=== PATIENT | female | born 1935 | race African-American/Black ===

== ENCOUNTER 2017-11-07 16:59 | Inpatient (IN) ==
[2017-11-07] MEDS ORDERED: SODIUM CHLORIDE 0.9% 500 ML IV STA (18:26)
[2017-11-07] MEDS ORDERED: methylPREDNISolone SOD SUC 125 MG/2 ML VIAL IV STA (18:26)
[2017-11-07] MEDS ORDERED: ALBUTEROL/IPRATROPIUM 3 ML NEB RESP TX STA (18:26)
[2017-11-07] MEDS ORDERED: ACETAMINOPHEN 500 MG TABLET PO STA (18:37)
[2017-11-07] MEDS ORDERED: ACETAMINOPHEN 500 MG TABLET ONE (18:40)
[2017-11-07] MEDS ORDERED: methylPREDNISolone SOD SUC 125 MG/2 ML VIAL ONE (18:40)
[2017-11-07 18:42] LABS: Basophils % 0.3 % (0.0-0.8); Hematocrit 41.2 VOL% (35.7-47.0); Hemoglobin 13.2 GM/DL (12.0-16.0); Immature Granulocytes % 0.6 %; Immature Granulocytes Absolute 0.09 #; Lymphocytes # 1.4 10*3/uL (1.4-4.0); Lymphocytes % 9.5 % (21.3-54.2); Mean Corpuscular Hemoglobin 31 PG (27-34); Mean Corpuscular Volume 96.5 FL (87-102); Mean Platelet Volume 9.3 FL (9.6-12.0); Monocytes # 0.9 10*3/uL (0.11-0.8); Monocytes % 6.3 % (1.7-12.7); Neutrophils # 12.2 10*3/uL (1.4-7.4); Neutrophils % 83.3 % (38.7-73.9); Platelet Count 282 T/CUMM (130-400); Red Blood Count 4.27 MC/CUMM (3.8-5.5); Red Cell Distribution Width 12.8 % (9.3-17.3); White Blood Count 14.7 T/CUMM (4-12)
[2017-11-07 19:00] LABS: Albumin 3.9 G/DL (3.4-5.0); Bilirubin,Total 0.5 MG/DL (0.2-1.0); Calcium 9.7 MG/DL (8.5-10.1); Osmolality,Calculated 272.4 MOS/KG (273-304); Potassium 4.3 MMOL/L (3.5-5.1); Total Protein 7.9 G/DL (6.4-8.3)
[2017-11-07 19:25] LABS: Troponin I Only < 0.015 NG/ML (0.00-0.045)
[2017-11-07] MEDS ORDERED: DOXYCYCLINE HYCLATE INJ 100 MG in SODIUM CHLORIDE 0.9% 100 ML IV STA (19:35)
[2017-11-07 19:53] LABS: PT Patient Result 10.5 SECS; Partial Thromboplastin Time 34.2 SECS (0-40)
[2017-11-07] MEDS ORDERED: SODIUM CHLORIDE 0.9% 100 ML IV ONE (19:58)
[2017-11-07] MEDS ORDERED: DOXYCYCLINE HYCLATE 100 MG VIAL ONE (19:58)
[2017-11-07] MEDS ORDERED: ALBUTEROL 1.25 MG/3 ML NEB RESP TX PRN (20:28)
[2017-11-07 20:44] LABS: Apearance,Urine CLEAR (Clear); Bacteria,Urine Occasional /HPF (Few); Bilirubin,Urine Negative (Negative); Blood, Urine Small mg/dL (Negative); Glucose,Urine (UA) Negative (Negative); Ketones,Urine Negative (Negative); Mucus,Urine Occasional /LPF (Occasional); Nitrite,Urine Negative (Negative); Protein,Urine 100 MG/DL; RBC,Urine 1 /HPF (0-4); Squamous Epithelial Cell,Urine Occasional /HPF (0-10); Urine Color Straw (Yellow); Urine Specific Gravity 1.006 (1.001-1.035); Urine Urobilinogen < 2.0 EU/DL (0.2-1.0); WBC,Urine 8 /HPF (0-6)
[2017-11-07] MEDS ORDERED: ONDANSETRON ODT 4 MG TABLET PO PRN (21:40)
[2017-11-07] MEDS ORDERED: LACTOBACILLUS RHAMNOSUS GG CAPSULE PO PRN (21:40)
[2017-11-07] MEDS ORDERED: GLUCAGON 1 MG VIAL IM PRN (21:40)
[2017-11-07] MEDS ORDERED: DEXTROSE 50% 25 GM/50 ML VIAL IV PRN (21:40)
[2017-11-07] MEDS ORDERED: CARBOXYMETHYLCELLULOSE 1% OPH SOLN BOTH EYES PRN (21:40)
[2017-11-07] MEDS ORDERED: ONDANSETRON 4 MG/2 ML VIAL IV PRN (21:40)
[2017-11-07] MEDS ORDERED: guaiFENesin/CODEINE 5 ML LIQUID PO PRN (21:40)
[2017-11-07] MEDS ORDERED: SIMETHICONE CHEW 125 MG TABLET PO PRN (21:40)
[2017-11-07] MEDS ORDERED: POLYETHYLENE GLYCOL POWDER 17 GM PACK PO PRN (21:40)
[2017-11-07] MEDS: MONTELUKAST 10 MG TABLET PO SCH (22:33)
[2017-11-07] MEDS: ENOXAPARIN 40 MG/0.4 ML SYRINGE SUBCUT SCH (22:33)
[2017-11-07] MEDS: MAGNESIUM CHLORIDE 64 MG TABLET PO SCH (22:33)
[2017-11-07] MEDS: MEROPENEM 500 MG in SODIUM CHLORIDE 0.9% 100 ML IV SCH (22:35)
[2017-11-07] MEDS: INSULIN LISPRO 100 UNIT/ML SUBCUT SCH (22:35)
[2017-11-07] MEDS: SODIUM CHLORIDE 0.9% 1,000 ML IV SCH (22:35)
[2017-11-08] MEDS: ALBUTEROL/IPRATROPIUM 3 ML NEB RESP TX SCH ×4 (00:21→15:22)
[2017-11-08] MEDS: Insulin Degludec [Tresiba Flextouch U-200] SUBCUT SCH (00:52)
[2017-11-08] MEDS: LEVOTHYROXINE 100 MCG TABLET PO SCH (05:35)
[2017-11-08 06:05] LABS: Basophils % 0.1 % (0.0-0.8); Hematocrit 37.5 VOL% (35.7-47.0); Hemoglobin 11.9 GM/DL (12.0-16.0); Immature Granulocytes % 0.4 %; Immature Granulocytes Absolute 0.06 #; Lymphocytes # 1.5 10*3/uL (1.4-4.0); Lymphocytes % 9.4 % (21.3-54.2); Mean Corpuscular HGB Conc 31.7 GM/DL (32-36); Mean Corpuscular Hemoglobin 31 PG (27-34); Mean Corpuscular Volume 97.9 FL (87-102); Mean Platelet Volume 9.4 FL (9.6-12.0); Monocytes # 0.3 10*3/uL (0.11-0.8); Monocytes % 1.6 % (1.7-12.7); Neutrophils # 14.5 10*3/uL (1.4-7.4); Neutrophils % 88.5 % (38.7-73.9); Platelet Count 264 T/CUMM (130-400); Red Blood Count 3.83 MC/CUMM (3.8-5.5); Red Cell Distribution Width 12.7 % (9.3-17.3); White Blood Count 16.4 T/CUMM (4-12)
[2017-11-08 06:17] LABS: Band Neutrophils 4 % (0-10); Giant Platelets Few; Hypochromasia 1+; Lymphocytes 7 % (20-55); Ovalocytes Slight; Platelet Estimate Adequate; Segmented Neutrophils 85 % (50-85); Total Cells Counted 100
[2017-11-08 06:40] LABS: Blood Urea Nitrogen 22 MG/DL (7-18); Glucose 357 MG/DL (74-106); Osmolality,Calculated 291.7 MOS/KG (273-304); Potassium 4.1 MMOL/L (3.5-5.1); Risk Ratio 1.37; Sodium 138 MMOL/L (136-145); Troponin I Only < 0.015 NG/ML (0.00-0.045); VLDL CHOLESTEROL 10.4 MG/DL
[2017-11-08 06:50] LABS: Alanine Aminotransferase 14 U/L (13-56); Albumin 3.2 G/DL (3.4-5.0); Alkaline Phosphatase 69 U/L (45-117); Aspartate Amino Transferase 12 U/L (0-37); Blood Urea Nitrogen 21 MG/DL (7-18); Calcium 9.3 MG/DL (8.5-10.1); Glucose 375 MG/DL (74-106); Osmolality,Calculated 290.8 MOS/KG (273-304); Potassium 4.1 MMOL/L (3.5-5.1); Sodium 137 MMOL/L (136-145)
[2017-11-08 06:51] LABS: Lactic Acid 3.5 MMOL/L (0.4-2.0)
[2017-11-08] MEDS: CETIRIZINE 10 MG TABLET PO SCH (08:31)
[2017-11-08] MEDS: PANTOPRAZOLE 40 MG TABLET PO SCH (08:31)
[2017-11-08] MEDS: MEROPENEM 500 MG in SODIUM CHLORIDE 0.9% 100 ML IV SCH ×2 (08:31→20:38)
[2017-11-08] MEDS: ALLOPURINOL 100 MG TABLET PO SCH (08:31)
[2017-11-08] MEDS: MAGNESIUM CHLORIDE 64 MG TABLET PO SCH ×2 (08:31→20:40)
[2017-11-08] MEDS: methylPREDNISolone SOD SUC 40 MG/1 ML VIAL IV SCH ×3 (08:32→21:35)
[2017-11-08] MEDS: INSULIN LISPRO 100 UNIT/ML SUBCUT SCH ×5 (09:06→21:35)
[2017-11-08] MEDS: LETROZOLE 2.5 MG TABLET PO SCH (09:06)
[2017-11-08] MEDS: SODIUM CHLORIDE 0.9% 1,000 ML IV SCH ×3 (11:36→23:35)
[2017-11-08] MEDS: hydrOXYzine HCL 10 MG TABLET PO PRN (13:50)
[2017-11-08] MEDS: ENOXAPARIN 40 MG/0.4 ML SYRINGE SUBCUT SCH ×2 (20:39→21:35)
[2017-11-08] MEDS: MONTELUKAST 10 MG TABLET PO SCH (20:40)
[2017-11-09] MEDS: INSULIN LISPRO 100 UNIT/ML SUBCUT SCH ×5 (01:00→21:13)
[2017-11-09] MEDS: ALBUTEROL/IPRATROPIUM 3 ML NEB RESP TX SCH ×3 (02:40→15:28)
[2017-11-09] MEDS: MORPHINE 4 MG/1 ML VIAL IV PRN ×2 (03:16→22:42)
[2017-11-09] MEDS: LEVOTHYROXINE 100 MCG TABLET PO SCH (06:16)
[2017-11-09] MEDS: methylPREDNISolone SOD SUC 40 MG/1 ML VIAL IV SCH ×2 (09:32→21:15)
[2017-11-09] MEDS: MEROPENEM 500 MG in SODIUM CHLORIDE 0.9% 100 ML IV SCH ×2 (09:34→21:12)
[2017-11-09] MEDS: MAGNESIUM CHLORIDE 64 MG TABLET PO SCH ×2 (09:35→21:15)
[2017-11-09] MEDS: ALLOPURINOL 100 MG TABLET PO SCH (09:35)
[2017-11-09] MEDS: PANTOPRAZOLE 40 MG TABLET PO SCH (09:35)
[2017-11-09] MEDS: CETIRIZINE 10 MG TABLET PO SCH (09:35)
[2017-11-09] MEDS: LETROZOLE 2.5 MG TABLET PO SCH (09:36)
[2017-11-09] MEDS: SODIUM CHLORIDE 0.9% 1,000 ML IV SCH (12:03)
[2017-11-09] MEDS: ENOXAPARIN 40 MG/0.4 ML SYRINGE SUBCUT SCH (21:14)
[2017-11-09] MEDS: MONTELUKAST 10 MG TABLET PO SCH (21:15)
[2017-11-09] MEDS: Insulin Degludec [Tresiba Flextouch U-200] SUBCUT SCH (22:41)
[2017-11-10] MEDS: ALBUTEROL/IPRATROPIUM 3 ML NEB RESP TX SCH ×3 (00:12→15:00)
[2017-11-10] MEDS: SODIUM CHLORIDE 0.9% 1,000 ML IV SCH ×2 (00:45→17:39)
[2017-11-10 04:25] LABS: Calcium 8.8 MG/DL (8.5-10.1); Osmolality,Calculated 292.4 MOS/KG (273-304); Potassium 4.6 MMOL/L (3.5-5.1)
[2017-11-10] MEDS: LEVOTHYROXINE 100 MCG TABLET PO SCH (06:46)
[2017-11-10] MEDS: INSULIN LISPRO 100 UNIT/ML SUBCUT SCH ×4 (08:10→21:08)
[2017-11-10] MEDS: ALLOPURINOL 100 MG TABLET PO SCH (08:11)
[2017-11-10] MEDS: MAGNESIUM CHLORIDE 64 MG TABLET PO SCH ×2 (08:11→21:07)
[2017-11-10] MEDS: CETIRIZINE 10 MG TABLET PO SCH (08:11)
[2017-11-10] MEDS: LETROZOLE 2.5 MG TABLET PO SCH (08:11)
[2017-11-10] MEDS: PANTOPRAZOLE 40 MG TABLET PO SCH (08:11)
[2017-11-10] MEDS: methylPREDNISolone SOD SUC 40 MG/1 ML VIAL IV SCH ×2 (08:13→21:07)
[2017-11-10] MEDS: MEROPENEM 500 MG in SODIUM CHLORIDE 0.9% 100 ML IV SCH ×2 (08:14→21:06)
[2017-11-10] MEDS: DICLOFENAC 1% GEL 100 GM TUBE TOP SCH ×2 (14:49→21:07)
[2017-11-10] MEDS: Insulin Degludec [Tresiba Flextouch U-200] SUBCUT SCH (21:05)
[2017-11-10] MEDS: ENOXAPARIN 40 MG/0.4 ML SYRINGE SUBCUT SCH (21:07)
[2017-11-10] MEDS: MONTELUKAST 10 MG TABLET PO SCH (21:07)
[2017-11-11] MEDS: ALBUTEROL/IPRATROPIUM 3 ML NEB RESP TX SCH ×3 (00:21→16:00)
[2017-11-11] MEDS: LEVOTHYROXINE 100 MCG TABLET PO SCH (06:19)
[2017-11-11] MEDS: SODIUM CHLORIDE 0.9% 1,000 ML IV SCH ×2 (06:19→16:10)
[2017-11-11] MEDS: INSULIN LISPRO 100 UNIT/ML SUBCUT SCH ×4 (08:27→21:08)
[2017-11-11] MEDS: methylPREDNISolone SOD SUC 40 MG/1 ML VIAL IV SCH ×2 (08:29→21:07)
[2017-11-11] MEDS: LETROZOLE 2.5 MG TABLET PO SCH (08:30)
[2017-11-11] MEDS: ALLOPURINOL 100 MG TABLET PO SCH (08:30)
[2017-11-11] MEDS: PANTOPRAZOLE 40 MG TABLET PO SCH (08:30)
[2017-11-11] MEDS: MEROPENEM 500 MG in SODIUM CHLORIDE 0.9% 100 ML IV SCH ×2 (08:30→21:07)
[2017-11-11] MEDS: CETIRIZINE 10 MG TABLET PO SCH (08:30)
[2017-11-11] MEDS: MAGNESIUM CHLORIDE 64 MG TABLET PO SCH ×2 (08:30→21:08)
[2017-11-11] MEDS: DICLOFENAC 1% GEL 100 GM TUBE TOP SCH ×3 (08:38→21:08)
[2017-11-11] MEDS: hydrOXYzine HCL 10 MG TABLET PO PRN (16:23)
[2017-11-11] MEDS: MORPHINE 4 MG/1 ML VIAL IV PRN (19:26)
[2017-11-11] MEDS: ENOXAPARIN 40 MG/0.4 ML SYRINGE SUBCUT SCH (21:07)
[2017-11-11] MEDS: Insulin Degludec [Tresiba Flextouch U-200] SUBCUT SCH (21:08)
[2017-11-11] MEDS: MONTELUKAST 10 MG TABLET PO SCH (21:08)
[2017-11-12] MEDS: ALBUTEROL/IPRATROPIUM 3 ML NEB RESP TX SCH ×2 (01:02→07:48)
[2017-11-12] MEDS: LEVOTHYROXINE 100 MCG TABLET PO SCH (05:33)
[2017-11-12] MEDS: SODIUM CHLORIDE 0.9% 1,000 ML IV SCH (06:44)
[2017-11-12 08:13] VITALS: BP 175/113
[2017-11-12] MEDS ORDERED: FLUCONAZOLE 100 MG TABLET PO SCH (09:00)
[2017-11-12] MEDS: INSULIN LISPRO 100 UNIT/ML SUBCUT SCH (09:06)
[2017-11-12] MEDS: methylPREDNISolone SOD SUC 40 MG/1 ML VIAL IV SCH (09:07)
[2017-11-12] MEDS: LETROZOLE 2.5 MG TABLET PO SCH (09:08)
[2017-11-12] MEDS: CETIRIZINE 10 MG TABLET PO SCH (09:08)
[2017-11-12] MEDS: PANTOPRAZOLE 40 MG TABLET PO SCH (09:08)
[2017-11-12] MEDS: ALLOPURINOL 100 MG TABLET PO SCH (09:08)
[2017-11-12] MEDS: DICLOFENAC 1% GEL 100 GM TUBE TOP SCH (09:08)
[2017-11-12] MEDS: MAGNESIUM CHLORIDE 64 MG TABLET PO SCH (09:08)
[2017-11-12] MEDS: MEROPENEM 500 MG in SODIUM CHLORIDE 0.9% 100 ML IV SCH (09:08)
== END 2017-11-12 11:00 | disposition home health service (06) | DRG 194 ==
LOC: N.ED 16:59 → N.EDINP 19:33 → N.TELEN 19:59
PROVIDERS: ADMIT Internal Medicine; ATTEND Internal Medicine

== ENCOUNTER 2019-07-01 07:12 | Inpatient (IN) ==
[2019-07-01 08:01] LABS: Basophils % 0.4 % (0.0-0.8); Eosinophils # 0.3 10*3/uL (0.0-0.87); Eosinophils % 3.3 % (0.00-10.9); Hemoglobin 12.2 GM/DL (12.0-16.0); Immature Granulocytes % 0.3 %; Immature Granulocytes Absolute 0.03 #; Lymphocytes # 4.5 10*3/uL (1.4-4.0); Lymphocytes % 49.9 % (21.3-54.2); Mean Corpuscular HGB Conc 31.3 GM/DL (32-36); Mean Corpuscular Volume 96.8 FL (87-102); Mean Platelet Volume 9.1 FL (9.6-12.0); Neutrophils % 37.1 % (38.7-73.9); Platelet Count 272 T/CUMM (130-400); Red Blood Count 4.03 MC/CUMM (3.8-5.5); Red Cell Distribution Width 13.3 % (9.3-17.3)
[2019-07-01 08:33] LABS: INR 0.9; PT Patient Result 9.7 SECS (9.6-12.2); Partial Thromboplastin Time 25.9 SECS (20.8-36.0)
[2019-07-01 08:42] LABS: Eosinophils 3 % (0-10); Hypochromasia 1+; Lymphocytes 46 % (20-55); Platelet Estimate Adequate; Segmented Neutrophils 43 % (50-85); Total Cells Counted 100
[2019-07-01 08:44] LABS: Alanine Aminotransferase 20 U/L (13-56); Albumin 3.5 G/DL (3.4-5.0); Alkaline Phosphatase 110 U/L (45-117); Aspartate Amino Transferase 16 U/L (0-37); Bilirubin,Total < 0.39 MG/DL (0.2-1.0); Blood Urea Nitrogen 16 MG/DL (7-18); Calcium 9.4 MG/DL (8.5-10.1); Estimated Glom Filtration Rate 49 ML/MIN; Glucose 198 MG/DL (74-106); Osmolality,Calculated 283.5 MOS/KG (273-304); Total Protein 7.1 G/DL (6.4-8.3)
[2019-07-01 09:05] LABS: Apearance,Urine CLEAR (Clear); Bilirubin,Urine Negative (Negative); Blood, Urine Negative (Negative); Glucose,Urine (UA) Negative (Negative); Ketones,Urine Negative (Negative); Nitrite,Urine Negative (Negative); Protein,Urine Negative; RBC,Urine <1 /HPF (0-4); Squamous Epithelial Cell,Urine Occasional /HPF (0-10); Urine Color Colorless (Yellow); Urine Specific Gravity 1.004 (1.001-1.035); Urine Urobilinogen < 2.0 EU/DL (0.2-1.0); WBC,Urine 1 /HPF (0-6)
[2019-07-01 09:15] LABS: Barbiturates Screen,Urine Negative (Negative); Benzodiazepines Screen,Urine Negative (Negative); Cannabinoid Screen,Urine Negative (Negative); Opiate Screen,Urine Positive (Negative); Phencyclidine Screen,Urine Negative (Negative)
[2019-07-01] MEDS ORDERED: ACETAMINOPHEN 325 MG TABLET PO PRN (11:02)
[2019-07-01] MEDS ORDERED: GLUCAGON 1 MG VIAL IM PRN ×2 (11:02)
[2019-07-01] MEDS ORDERED: DEXTROSE 10% 250 ML BAG IV PRN (11:02)
[2019-07-01] MEDS ORDERED: ONDANSETRON 4 MG/2 ML VIAL IV PRN (11:02)
[2019-07-01] MEDS ORDERED: DEXTROSE 50% 25 GM/50 ML VIAL IV PRN (11:02)
[2019-07-01] MEDS: INSULIN REGULAR 100 UNIT/ML SUBCUT SCH ×3 (11:20→21:20)
[2019-07-01] MEDS ORDERED: hydrOXYzine HCL 10 MG TABLET PO PRN (11:24)
[2019-07-01] MEDS ORDERED: DICLOFENAC 1% GEL 100 GM TUBE TOP PRN (11:24)
[2019-07-01] MEDS ORDERED: SIMETHICONE CHEW 125 MG TABLET PO PRN (11:24)
[2019-07-01] MEDS ORDERED: MENTHOL TOP PRN (11:24)
[2019-07-01] MEDS ORDERED: LIDOCAINE HCL TOP PRN (11:24)
[2019-07-01] MEDS ORDERED: ENOXAPARIN 40 MG/0.4 ML SYRINGE SUBCUT SCH (12:00)
[2019-07-01] MEDS: SODIUM CHLORIDE 0.45% 1,000 ML IV SCH (13:06)
[2019-07-01] MEDS: MAGNESIUM CHLORIDE 64 MG TABLET PO SCH ×2 (15:41→21:16)
[2019-07-01] MEDS ORDERED: MONTELUKAST 10 MG TABLET PO SCH (21:00)
[2019-07-01] MEDS: AZELASTINE NASAL 137 MCG/SPRAY 30 ML BOTTLE BOTH NARES SCH (21:15)
[2019-07-01] MEDS: BUDESONIDE/FORMOTEROL 160-4.5 INHALER 6 GM INH SCH (21:15)
[2019-07-01] MEDS: ENOXAPARIN 40 MG/0.4 ML SYRINGE SUBCUT SCH (21:29)
[2019-07-01] MEDS: ALBUTEROL/IPRATROPIUM 3 ML NEB RESP TX PRN (22:25)
[2019-07-02 05:29] LABS: Basophils % 0.3 % (0.0-0.8); Eosinophils # 0.2 10*3/uL (0.0-0.87); Eosinophils % 1.8 % (0.00-10.9); Hematocrit 39.2 VOL% (35.7-47.0); Hemoglobin 12.3 GM/DL (12.0-16.0); Immature Granulocytes % 0.3 %; Immature Granulocytes Absolute 0.03 #; Lymphocytes # 3.6 10*3/uL (1.4-4.0); Lymphocytes % 37.2 % (21.3-54.2); Mean Corpuscular HGB Conc 31.4 GM/DL (32-36); Mean Corpuscular Volume 96.3 FL (87-102); Mean Platelet Volume 9.2 FL (9.6-12.0); Monocytes % 7.7 % (1.7-12.7); Neutrophils % 52.7 % (38.7-73.9); Platelet Count 288 T/CUMM (130-400); Red Blood Count 4.07 MC/CUMM (3.8-5.5); Red Cell Distribution Width 13.4 % (9.3-17.3); White Blood Count 9.6 T/CUMM (4-12)
[2019-07-02 05:30] LABS: Calcium 8.8 MG/DL (8.5-10.1); Osmolality,Calculated 284.4 MOS/KG (273-304)
[2019-07-02 05:55] LABS: Hypochromasia Slight; Platelet Estimate Adequate
[2019-07-02] MEDS ORDERED: LEVOTHYROXINE 100 MCG TABLET PO SCH (06:00)
[2019-07-02] MEDS: SODIUM CHLORIDE 0.45% 1,000 ML IV SCH ×4 (06:22→21:20)
[2019-07-02] MEDS: CYANOCOBALAMIN 500 MCG TABLET PO SCH (08:36)
[2019-07-02] MEDS: CETIRIZINE 10 MG TABLET PO SCH (08:36)
[2019-07-02] MEDS: LACTOBACILLUS RHAMNOSUS GG CAPSULE PO SCH (08:37)
[2019-07-02] MEDS: LISINOPRIL 5 MG TABLET PO SCH (08:37)
[2019-07-02] MEDS: MAGNESIUM CHLORIDE 64 MG TABLET PO SCH ×3 (08:38→22:00)
[2019-07-02] MEDS: FOLIC ACID 0.4 MG TABLET PO SCH (08:38)
[2019-07-02] MEDS: PANTOPRAZOLE 40 MG TABLET PO SCH (08:38)
[2019-07-02] MEDS: ALLOPURINOL 100 MG TABLET PO SCH (08:39)
[2019-07-02] MEDS: BUDESONIDE/FORMOTEROL 160-4.5 INHALER 6 GM INH SCH ×2 (08:39→22:00)
[2019-07-02] MEDS: AZELASTINE NASAL 137 MCG/SPRAY 30 ML BOTTLE BOTH NARES SCH ×2 (08:40→22:00)
[2019-07-02] MEDS: FLUTICASONE 50 MCG NASAL SPRAY 16 GM BOTTLE BOTH NARES SCH (08:44)
[2019-07-02] MEDS: MONTELUKAST 10 MG TABLET PO SCH (08:50)
[2019-07-02] MEDS: INSULIN REGULAR 100 UNIT/ML SUBCUT SCH ×4 (09:44→21:00)
[2019-07-02] MEDS: guaiFENesin/DM ER 600-30 MG TABLET PO PRN ×2 (11:20→22:11)
[2019-07-02] MEDS: ALBUTEROL/IPRATROPIUM 3 ML NEB RESP TX PRN ×2 (11:25→20:30)
[2019-07-02] MEDS: ATORVASTATIN 40 MG TABLET PO SCH (15:15)
[2019-07-02] MEDS: ENOXAPARIN 40 MG/0.4 ML SYRINGE SUBCUT SCH (22:00)
[2019-07-02] MEDS: DOCUSATE SODIUM 100 MG CAPSULE PO PRN (22:09)
[2019-07-03 05:25] LABS: Risk Ratio 2.12; VLDL CHOLESTEROL 34.6 MG/DL
[2019-07-03] MEDS: LEVOTHYROXINE 75 MCG TABLET PO SCH (05:53)
[2019-07-03] MEDS: MONTELUKAST 10 MG TABLET PO SCH ×2 (07:21→10:12)
[2019-07-03] MEDS: INSULIN REGULAR 100 UNIT/ML SUBCUT SCH ×4 (09:27→20:19)
[2019-07-03] MEDS: FLUTICASONE 50 MCG NASAL SPRAY 16 GM BOTTLE BOTH NARES SCH (09:29)
[2019-07-03] MEDS: AZELASTINE NASAL 137 MCG/SPRAY 30 ML BOTTLE BOTH NARES SCH ×2 (09:29→21:31)
[2019-07-03] MEDS: LACTOBACILLUS RHAMNOSUS GG CAPSULE PO SCH (09:30)
[2019-07-03] MEDS: CETIRIZINE 10 MG TABLET PO SCH (09:30)
[2019-07-03] MEDS: BUDESONIDE/FORMOTEROL 160-4.5 INHALER 6 GM INH SCH ×2 (09:30→21:30)
[2019-07-03] MEDS: LISINOPRIL 5 MG TABLET PO SCH (09:31)
[2019-07-03] MEDS: PANTOPRAZOLE 40 MG TABLET PO SCH (09:31)
[2019-07-03] MEDS: MAGNESIUM CHLORIDE 64 MG TABLET PO SCH ×3 (09:31→21:31)
[2019-07-03] MEDS: CYANOCOBALAMIN 500 MCG TABLET PO SCH (09:31)
[2019-07-03] MEDS: ALLOPURINOL 100 MG TABLET PO SCH (09:31)
[2019-07-03] MEDS: FOLIC ACID 0.4 MG TABLET PO SCH (09:32)
[2019-07-03] MEDS: ATORVASTATIN 40 MG TABLET PO SCH (09:32)
[2019-07-03] MEDS: DOCUSATE SODIUM 100 MG CAPSULE PO PRN (09:42)
[2019-07-03] MEDS: SODIUM CHLORIDE 0.45% 1,000 ML IV SCH ×2 (10:13→11:52)
[2019-07-03] MEDS: INSULIN GLARGINE 100 UNIT/ML SUBCUT SCH (11:59)
[2019-07-04] MEDS: LEVOTHYROXINE 75 MCG TABLET PO SCH (07:13)
[2019-07-04] MEDS: INSULIN GLARGINE 100 UNIT/ML SUBCUT SCH (08:34)
[2019-07-04] MEDS: INSULIN REGULAR 100 UNIT/ML SUBCUT SCH ×2 (08:35→12:00)
[2019-07-04] MEDS: FOLIC ACID 0.4 MG TABLET PO SCH (08:37)
[2019-07-04] MEDS: LISINOPRIL 5 MG TABLET PO SCH (08:37)
[2019-07-04] MEDS: CETIRIZINE 10 MG TABLET PO SCH (08:37)
[2019-07-04] MEDS: ATORVASTATIN 40 MG TABLET PO SCH (08:37)
[2019-07-04] MEDS: DOCUSATE SODIUM 100 MG CAPSULE PO PRN (08:37)
[2019-07-04] MEDS: LACTOBACILLUS RHAMNOSUS GG CAPSULE PO SCH (08:38)
[2019-07-04] MEDS: CYANOCOBALAMIN 500 MCG TABLET PO SCH (08:38)
[2019-07-04] MEDS: MONTELUKAST 10 MG TABLET PO SCH (08:38)
[2019-07-04] MEDS: MAGNESIUM CHLORIDE 64 MG TABLET PO SCH (08:38)
[2019-07-04] MEDS: PANTOPRAZOLE 40 MG TABLET PO SCH (08:39)
[2019-07-04] MEDS: ALLOPURINOL 100 MG TABLET PO SCH (08:39)
[2019-07-04] MEDS: BUDESONIDE/FORMOTEROL 160-4.5 INHALER 6 GM INH SCH (08:43)
[2019-07-04] MEDS: AZELASTINE NASAL 137 MCG/SPRAY 30 ML BOTTLE BOTH NARES SCH (08:43)
[2019-07-04] MEDS: FLUTICASONE 50 MCG NASAL SPRAY 16 GM BOTTLE BOTH NARES SCH (08:43)
[2019-07-04] MEDS ORDERED: CLOPIDOGREL 75 MG TABLET PO SCH (09:00)
[2019-07-04 14:26] VITALS: BP 118/61
== END 2019-07-04 15:18 | disposition home health service (06) | DRG 65 ==
LOC: N.ED 07:12 → INTOOBSV 11:03 → SUATTDRO 11:03 → N.EDINP 11:03 → N.4E 12:16 → SUATTDRO 07-02 14:36
PROVIDERS: ADMIT Internal Medicine Nephrology; ATTEND Internal Medicine

== ENCOUNTER 2021-03-10 09:43 | Observation (INO) ==
[2021-03-10] MEDS ORDERED: LACTULOSE 20 GM/30 ML UDCUP PO PRN (10:06)
[2021-03-10] MEDS ORDERED: guaiFENesin/DM ER 600-30 MG TABLET PO PRN (10:06)
[2021-03-10] MEDS ORDERED: MAGNESIUM SULF RIDER 4 GM/100 ML PREMIX IV PRN (10:06)
[2021-03-10] MEDS ORDERED: ONDANSETRON 4 MG/2 ML VIAL IV PRN (10:06)
[2021-03-10] MEDS ORDERED: SIMETHICONE CHEW 125 MG TABLET PO PRN (10:06)
[2021-03-10] MEDS ORDERED: CALCIUM CARBONATE CHEW 500 MG TABLET PO PRN (10:06)
[2021-03-10] MEDS ORDERED: diphenhydrAMINE CAP 25 MG CAPSULE PO PRN (10:06)
[2021-03-10] MEDS ORDERED: MORPHINE 2 MG/1 ML SYRINGE IV PRN (10:06)
[2021-03-10] MEDS ORDERED: MAGNESIUM SULF RIDER 2 GM/50 ML PREMIX IV PRN (10:06)
[2021-03-10] MEDS ORDERED: ACETAMINOPHEN 325 MG TABLET PO PRN (10:06)
[2021-03-10] MEDS ORDERED: ZALEPLON 5 MG CAPSULE PO PRN (10:06)
[2021-03-10] MEDS ORDERED: ALUMINUM/MAGNES/SIMETH MAX STR 30 ML UDCUP PO PRN (10:06)
[2021-03-10] MEDS ORDERED: BISACODYL 5 MG TABLET PO PRN (10:06)
[2021-03-10] MEDS ORDERED: hydrALAZINE 20 MG/1 ML VIAL IV PRN (10:06)
[2021-03-10] MEDS ORDERED: POTASSIUM CHLORIDE 20 MEQ TABLET PO PRN (10:10)
[2021-03-10] MEDS ORDERED: DEXTROSE 50% 25 GM/50 ML VIAL IV PRN (10:12)
[2021-03-10] MEDS ORDERED: GLUCAGON 1 MG VIAL IM PRN (10:12)
[2021-03-10] MEDS: INSULIN LISPRO 100 UNIT/ML SUBCUT SCH ×3 (13:06→20:38)
[2021-03-10 13:23] LABS: Basophils % 0.7 % (0.0-0.8); Eosinophils # 0.2 10*3/uL (0.0-0.87); Eosinophils % 2.5 % (0.00-10.9); Hematocrit 35.2 VOL% (35.7-47.0); Hemoglobin 11.1 GM/DL (12.0-16.0); Immature Granulocytes % 0.2 %; Lymphocytes # 2.4 10*3/uL (1.4-4.0); Lymphocytes % 28.1 % (21.3-54.2); Mean Corpuscular HGB Conc 31.5 GM/DL (32-36); Mean Corpuscular Volume 99.4 FL (87-102); Mean Platelet Volume 8.8 FL (9.6-12.0); Monocytes % 7.4 % (1.7-12.7); Neutrophils % 61.1 % (38.7-73.9); Platelet Count 253 T/CUMM (130-400); Red Blood Count 3.54 MC/CUMM (3.8-5.5); White Blood Count 8.7 T/CUMM (4-12)
[2021-03-10 13:24] LABS: Basophils # 0.1 10*3/uL (0.0-0.2); Immature Granulocytes Absolute 0.02 #
[2021-03-10 13:45] LABS: Alanine Aminotransferase 19 U/L (13-56); Albumin 3.6 G/DL (3.4-5.0); Alkaline Phosphatase 100 U/L (45-117); Aspartate Amino Transferase 12 U/L (0-37); Bilirubin,Total < 0.39 MG/DL (0.20-1.00); Blood Urea Nitrogen 22 MG/DL (7-18); Calcium 9.4 MG/DL (8.5-10.1); Carbon Dioxide 20 MMOL/L (21-32); Estimated Glom Filtration Rate 54 ML/MIN; Glucose 121 MG/DL (74-106); Osmolality,Calculated 284.3 MOS/KG (273-304); Potassium 5.3 MMOL/L (3.5-5.1); Sodium 141 MMOL/L (136-145); Total Protein 7.5 G/DL (6.4-8.2)
[2021-03-10] MEDS ORDERED: ENOXAPARIN 40 MG/0.4 ML SYRINGE SUBCUT SCH (15:00)
[2021-03-11 06:58] LABS: Basophils % 0.5 % (0.0-0.8); Eosinophils # 0.3 10*3/uL (0.0-0.87); Immature Granulocytes % 0.9 %; Immature Granulocytes Absolute 0.08 #; Lymphocytes # 3.6 10*3/uL (1.4-4.0); Lymphocytes % 42.3 % (21.3-54.2); Mean Corpuscular HGB Conc 31.4 GM/DL (32-36); Mean Corpuscular Volume 98.9 FL (87-102); Mean Platelet Volume 8.9 FL (9.6-12.0); Monocytes % 8.3 % (1.7-12.7); Platelet Count 270 T/CUMM (130-400); Red Blood Count 3.54 MC/CUMM (3.8-5.5); Red Cell Distribution Width 13.9 % (9.3-17.3); White Blood Count 8.6 T/CUMM (4-12)
[2021-03-11 08:00] LABS: Calcium 8.9 MG/DL (8.5-10.1); Potassium 5.1 MMOL/L (3.5-5.1); Risk Ratio 1.57; VLDL Cholesterol 12.2 MG/DL
[2021-03-11] MEDS ORDERED: MENTHOL 4% TOP PRN (08:28)
[2021-03-11] MEDS ORDERED: OLOPATADINE 0.1% BOTH EYES PRN (08:28)
[2021-03-11] MEDS ORDERED: ALBUTEROL/IPRATROPIUM 3 ML NEB RESP TX PRN (08:28)
[2021-03-11] MEDS ORDERED: LACTOBACILLUS RHAMNOSUS GG PO PRN (08:28)
[2021-03-11] MEDS ORDERED: LEVOTHYROXINE 75 MCG TABLET PO SCH (08:30)
[2021-03-11] MEDS: INSULIN LISPRO 100 UNIT/ML SUBCUT SCH ×2 (08:32→12:42)
[2021-03-11] MEDS ORDERED: FOLIC ACID 1 MG TABLET PO SCH (09:00)
[2021-03-11] MEDS ORDERED: INSULIN LISPRO 100 UNIT/ML SUBCUT SCH (09:00)
[2021-03-11] MEDS ORDERED: BUDESONIDE/FORMOTEROL 160-4.5 INHALER 6 GM INH SCH (09:00)
[2021-03-11] MEDS ORDERED: CYANOCOBALAMIN 500 MCG TABLET PO SCH (09:00)
[2021-03-11] MEDS ORDERED: FLUTICASONE PROPIONATE BOTH NARES SCH (09:00)
[2021-03-11] MEDS ORDERED: AZELASTINE BOTH NARES SCH (09:00)
[2021-03-11] MEDS ORDERED: MAGNESIUM CHLORIDE 64 MG TABLET PO SCH (09:00)
[2021-03-11] MEDS ORDERED: CHOLECALCIFEROL 1,000 UNIT TABLET PO SCH (09:00)
[2021-03-11] MEDS ORDERED: PANTOPRAZOLE 40 MG TABLET PO SCH (09:00)
[2021-03-11] MEDS ORDERED: CLOPIDOGREL 75 MG TABLET PO SCH (09:00)
[2021-03-11] MEDS ORDERED: allopurinoL 100 MG TABLET PO SCH (09:00)
[2021-03-11] MEDS ORDERED: CETIRIZINE 10 MG TABLET PO SCH (09:00)
[2021-03-11] MEDS ORDERED: lisinopriL 5 MG TABLET PO SCH (09:00)
[2021-03-11 12:41] VITALS: BP 132/61
[2021-03-11] MEDS ORDERED: GABAPENTIN 100 MG CAPSULE PO SCH (19:00)
[2021-03-11] MEDS ORDERED: INSULIN GLARGINE 100 UNIT/ML SUBCUT SCH (21:00)
[2021-03-11] MEDS ORDERED: MONTELUKAST 10 MG TABLET PO SCH (21:00)
[2021-03-11] MEDS ORDERED: ATORVASTATIN 40 MG TABLET PO SCH (21:00)
[2021-03-12] MEDS ORDERED: LEVOTHYROXINE 75 MCG TABLET PO SCH (07:30)
== END 2021-03-11 13:45 | disposition home or self-care (01) ==
LOC: N.TELEN
PROVIDERS: ADMIT Internal Medicine Interventional Cardiology; ATTEND Internal Medicine Interventional Cardiology

== ENCOUNTER 2022-05-31 19:29 | Observation (INO) ==
[2022-05-31] MEDS ORDERED: SODIUM CHLORIDE 0.9% 500 ML IV STA (21:00)
[2022-05-31 21:15] LABS: Basophils % 0.4 % (0.0-0.8); Eosinophils # 0.2 10*3/uL (0.0-0.87); Hematocrit 36.3 VOL% (35.7-47.0); Hemoglobin 11.3 GM/DL (12.0-16.0); Immature Granulocytes % 0.3 %; Immature Granulocytes Absolute 0.03 #; Lymphocytes # 3.6 10*3/uL (1.4-4.0); Lymphocytes % 36.6 % (21.3-54.2); Mean Corpuscular HGB Conc 31.1 GM/DL (32-36); Mean Corpuscular Volume 99.7 FL (87-102); Mean Platelet Volume 8.5 FL (9.6-12.0); Monocytes # 0.8 10*3/uL (0.11-0.8); Monocytes % 8.2 % (1.7-12.7); Neutrophils % 52.5 % (38.7-73.9); Platelet Count 239 T/CUMM (130-400); Red Blood Count 3.64 MC/CUMM (3.8-5.5); Red Cell Distribution Width 13.2 % (9.3-17.3); White Blood Count 9.8 T/CUMM (4-12)
[2022-05-31 21:32] LABS: Alanine Aminotransferase 25 U/L (13-56); Albumin 3.6 G/DL (3.4-5.0); Alkaline Phosphatase 59 U/L (45-117); Aspartate Amino Transferase 15 U/L (0-37); Bilirubin,Total < 0.39 MG/DL (0.20-1.00); Blood Urea Nitrogen 21 MG/DL (7-18); Calcium 9.5 MG/DL (8.5-10.1); Carbon Dioxide 22 MMOL/L (21-32); Chloride 114 MMOL/L (98-107); Glucose 170 MG/DL (74-106); Osmolality,Calculated 289.1 MOS/KG (273-304); Potassium 5.1 MMOL/L (3.5-5.1); Sodium 142 MMOL/L (136-145); Total Protein 7.2 G/DL (6.4-8.2)
[2022-05-31 22:12] LABS: Bacteria,Urine Occasional /HPF (Few); Bilirubin,Urine Negative (Negative); Blood, Urine Small mg/dL (Negative); Glucose,Urine (UA) Negative (Negative); Ketones,Urine Negative (Negative); Nitrite,Urine Negative (Negative); Protein,Urine Negative (Negative); RBC,Urine <1 /HPF (0-4); Squamous Epithelial Cell,Urine Occasional /HPF (0-10); Urine Appearance CLEAR (Clear); Urine Color Colorless (Yellow); Urine Specific Gravity 1.003 (1.001-1.035); Urine Urobilinogen < 2.0 eU/dL (<2.0)
[2022-05-31] MEDS ORDERED: LABETALOL 20 MG/4 ML SYRINGE IV PRN (23:55)
[2022-06-01] MEDS ORDERED: SIMETHICONE CHEW 125 MG TABLET PO PRN (00:04)
[2022-06-01] MEDS ORDERED: OLOPATADINE 0.1% OPH SOLN 5 ML BOTTLE BOTH EYES PRN (00:04)
[2022-06-01] MEDS ORDERED: hydrOXYzine HCL 10 MG TABLET PO PRN (00:04)
[2022-06-01] MEDS ORDERED: BACILLUS COAGULANS CAPLET PO PRN (02:14)
[2022-06-01] MEDS ORDERED: LEVOTHYROXINE 75 MCG TABLET PO SCH (06:00)
[2022-06-01 07:51] LABS: Risk Ratio 1.7
[2022-06-01 07:53] LABS: Alanine Aminotransferase 22 U/L (13-56); Albumin 2.8 G/DL (3.4-5.0); Alkaline Phosphatase 51 U/L (45-117); Aspartate Amino Transferase 11 U/L (0-37); Bilirubin,Total < 0.39 MG/DL (0.20-1.00); Blood Urea Nitrogen 18 MG/DL (7-18); Calcium 9.2 MG/DL (8.5-10.1); Carbon Dioxide 23 MMOL/L (21-32); Chloride 116 MMOL/L (98-107); Glucose 168 MG/DL (74-106); Osmolality,Calculated 288.1 MOS/KG (273-304); Sodium 142 MMOL/L (136-145); Total Protein 6.2 G/DL (6.4-8.2)
[2022-06-01 08:11] VITALS: BP 157/90
[2022-06-01] MEDS ORDERED: allopurinoL 100 MG TABLET PO SCH (09:00)
[2022-06-01] MEDS ORDERED: ENOXAPARIN 40 MG/0.4 ML SYRINGE SUBCUT SCH (09:00)
[2022-06-01] MEDS ORDERED: BUDESONIDE/FORMOTEROL 160-4.5 INHALER 6 GM INH SCH (09:00)
[2022-06-01] MEDS ORDERED: AZELASTINE NASAL 137 MCG/SPRAY 30 ML BOTTLE BOTH NARES SCH (09:00)
[2022-06-01] MEDS ORDERED: MAGNESIUM CHLORIDE 64 MG TABLET PO SCH (09:00)
[2022-06-01] MEDS ORDERED: FOLIC ACID 1 MG TABLET PO SCH (09:00)
[2022-06-01] MEDS ORDERED: CYANOCOBALAMIN 500 MCG TABLET PO SCH (09:00)
[2022-06-01] MEDS ORDERED: CETIRIZINE 10 MG TABLET PO SCH (09:00)
[2022-06-01] MEDS ORDERED: CLOPIDOGREL 75 MG TABLET PO SCH (09:00)
[2022-06-01] MEDS ORDERED: FLUTICASONE 50 MCG NASAL SPRAY 16 GM BOTTLE BOTH NARES SCH (09:00)
[2022-06-01] MEDS ORDERED: lisinopriL 5 MG TABLET PO SCH (09:00)
[2022-06-01] MEDS ORDERED: CHOLECALCIFEROL 1,000 UNIT TABLET PO SCH (09:00)
[2022-06-01] MEDS: INSULIN REGULAR 100 UNIT/ML SUBCUT SCH ×2 (10:01→12:02)
[2022-06-01] MEDS ORDERED: ATORVASTATIN 40 MG TABLET PO SCH (21:00)
[2022-06-01] MEDS ORDERED: GABAPENTIN 100 MG CAPSULE PO SCH (21:00)
[2022-06-01] MEDS ORDERED: MONTELUKAST 10 MG TABLET PO SCH (21:00)
== END 2022-06-01 17:32 | disposition home or self-care (01) ==
LOC: N.ED 19:29 → N.EDINP 19:29 → N.2W 06-01 02:12
PROVIDERS: ADMIT Internal Medicine; ATTEND Internal Medicine